=== PATIENT | female | born 1980 ===

== ENCOUNTER 2018-02-18 02:57 | Emergency (ER) | payer SELFPAY ==
--- NOTE | 2018-02-18 03:23 | ED PDOC ---
HPI: General Adult Time Seen by Provider: 02/18/18 03:13 Chief Complaint (Nursing): Headache Chief Complaint (Provider): bodyaches History Per: Patient History/Exam Limitations: no limitations Onset/Duration Of Symptoms: Hrs (7) Current Symptoms Are (Timing): Still Present Additional Complaint(s): 37 y/o female presents for evaluation of generalized bodyaches x 7 hours. Denies fever, cough, congestion, vomiting, chest pain, shortness of breath, palpitations, urinary symptoms, sick contacts. No medication taken for relief thus far. Past Medical History Reviewed: Historical Data, Nursing Documentation, Vital Signs Vital Signs: Last Vital Signs Temp 98.4 F 02/18/18 03:09 Pulse 73 02/18/18 03:09 Resp 16 02/18/18 03:09 BP 139/74 02/18/18 03:09 Pulse Ox 98 02/18/18 03:23 - Medical History PMH: No Chronic Diseases - Surgical History Surgical History: Back Surgery - Family History Family History: States: No Known Family Hx - Living Arrangements Living Arrangements: With Family - Home Medications Home Medications: Ambulatory Orders Medication Instructions Recorded Ibuprofen [Motrin Tab] 1 tab PO Q6 PRN #15 tab 02/18/18 - Allergies Allergies/Adverse Reactions: Allergies Allergy/AdvReac Type Severity Reaction Status Date / Time No Known Allergies Allergy Verified 02/18/18 03:09 Review of Systems ROS Statement: Except As Marked, All Systems Reviewed And Found Negative Musculoskeletal: Positive for: Other (generalized pain) Physical Exam - Reviewed Nursing Documentation Reviewed: Yes Vital Signs Reviewed: Yes - Physical Exam Appears: Positive for: Well, Non-toxic, No Acute Distress Head Exam: Positive for: ATRAUMATIC, NORMAL INSPECTION, NORMOCEPHALIC Skin: Positive for: Normal Color Eye Exam: Positive for: Normal appearance ENT: Positive for: Normal ENT Inspection Cardiovascular/Chest: Positive for: Regular Rate, Rhythm Respiratory: Positive for: Normal Breath Sounds Gastrointestinal/Abdominal: Positive for: Normal Exam Back: Positive for: Normal Inspection Extremity: Positive for: Normal ROM Neurologic/Psych: Positive for: Alert, Oriented. Negative for: Motor/Sensory Deficits - ECG O2 Sat by Pulse Oximetry: 98 - Progress ED Course And Treament: upreg, flu, Toradol IM On re-eval, patient reports improvement of symptoms. Patient educated on findings, discharged with rx ibuprofen. Advised follow up PMD 2-3 days. Return precautions given. Disposition - Clinical Impression Clinical Impression: Total body pain - Patient ED Disposition Is Patient to be Admitted: No Counseled Patient/Family Regarding: Studies Performed, Diagnosis, Need For Followup, Rx Given - Disposition Referrals: [facility] [Outside] Disposition: Routine/Home Disposition Time: 04:19 Condition: IMPROVED Prescriptions: Ibuprofen [Motrin Tab] 1 tab PO Q6 PRN #15 tab PRN Reason: Pain, Moderate (4-7) Instructions: Muscle and Bone Pain (DC) Forms: [employer] ([place]) Print Language: MALAY
[2018-02-18 12:12] VITALS: BMI 30.4
[2018-02-18 12:13] VITALS: BP 139/74; PULSE 73; RESP 16; TEMP 98.4; O2SAT 98
== END 2018-02-18 05:21 | disposition home or self-care (01) ==
LOC: H.ER 02:57
DX: M79.1 Myalgia (principal)
CPT/HCPCS: 81025; 87804; 96372; 99284; J1885